=== PATIENT | male | born 1940 | race Caucasian/White ===

== ENCOUNTER 2024-11-30 18:59 | Emergency (ER) | payer MEDICARE, SELFPAY ==
[2024-11-30 19:14] VITALS: BP 132/80; PULSE 69; TEMP 36.9; O2SAT 98; BMI 11.5
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
[2024-12-01] MEDS: SURGIFOAM GEL SPONGE SIZE 100 1 EACH TOPICAL (01:58)
[2024-12-01 05:10] VITALS: BP 123/76; PULSE 77; O2SAT 98
--- NOTE | 2024-12-01 05:40 | PC.NURSE ---
pt repositioned for comfort by this RN, breakfast ordered
[2024-12-01] MEDS: QUETIAPINE FUMARATE 25 MG TABLET PO (06:53)
--- NOTE | 2024-12-01 07:00 | PC.NURSE ---
assumed care of this pt, pt is resting comfortable on er cart 5, denies needs at this time.
--- NOTE | 2024-12-01 08:16 | PC.NURSE ---
pt given breakfast, he states he will eat later, pt resting comfortable on er cart
--- NOTE | 2024-12-01 08:53 | PC.NURSE ---
[facility] calls to say they will accept pt but not until 1 pm today
--- NOTE | 2024-12-01 08:55 | SWNOTE1 ---
RODOLFO received call from Kathi at [facility], the facility the patient is from. She had been in touch with the ED last night. She was calling to let us know that they are able to accept patient back. They have to move rooms, so they can not take him until late morning/early afternoon. RODOLFO asked if 1:00 would be alright, she voiced yes. SW to call ED and update them. RODOLFO called ED and spoke to Columba, social secretary, and updated her. She will let physician know. RODOLFO advised that we will need to set up ambulance transport. RODOLFO called Kathi back and let her know we will set up transport and it will not be before 1:00. RODOLFO to call Kathi back with ETA.
--- NOTE | 2024-12-01 10:28 | SWNOTE1 ---
Transport is set with [facility] at 1:00. SW called and notified Kathi of time.
[2024-12-01 12:34] VITALS: BP 122/61; PULSE 63; TEMP 36.7; O2SAT 95
--- NOTE | 2024-12-01 13:10 | PC.NURSE ---
[facility] here
== END 2024-12-01 13:26 | disposition home or self-care (01) ==
PROVIDERS: Emergency Provider Emergency Medicine
DX: F01.50 Vascular dementia, unspecified severity, without behavioral disturbance, psychotic disturbance, mood disturbance, and anxiety (principal)
CPT/HCPCS: 99283